=== PATIENT | male | born 1980 | race Caucasian/White ===

== ENCOUNTER 2016-09-21 12:15 | Emergency (ER) | payer BC ==
[~2016-09-21] VITALS: Ht 172.7 cm; Wt 70.3 kg
--- NOTE | 2016-09-21 12:22 | NUR ---
[id number], came to er c/o ANXIETY, LEFT ARM NUMBNESSM L ELBOW SWELLING, PALPITATIONS, HEADACHE. skin is warm and dry. resp is even and unlabored with nad noted. NITO Laurent at BS for eval.
--- NOTE | 2016-09-21 12:23 | NUR ---
Patient placed on monitor and will continuously monitor the patient.
[2016-09-21] MEDS ORDERED: IBUPROFEN 400 MG TABLET ONE (12:49)
[2016-09-21] MEDS ORDERED: IBUPROFEN 400 MG TABLET PO ONE (13:00)
[2016-09-21 13:14] VITALS: BP 117/71
== END 2016-09-21 13:15 | disposition home or self-care (01) ==
LOC: ER 12:19
DX: M94.0 Chondrocostal junction syndrome [Tietze] (principal); F41.9 Anxiety disorder, unspecified; M79.89 Other specified soft tissue disorders; R00.2 Palpitations; R51 Headache
CPT/HCPCS: A4606; Z7610

== ENCOUNTER 2017-11-27 18:07 | Emergency (ER) | payer BC ==
[~2017-11-27] VITALS: Ht 172.7 cm; Wt 68.0 kg
[2017-11-27 18:07] VITALS: BP 113/56
== END 2017-11-27 20:54 | disposition home or self-care (01) ==
LOC: ER 18:08
DX: S00.12XA Contusion of left eyelid and periocular area, initial encounter (principal); S00.31XA Abrasion of nose, initial encounter; Z90.89 Acquired absence of other organs; W22.8XXA Striking against or struck by other objects, initial encounter; Y93.89 Activity, other specified; Y92.89 Other specified places as the place of occurrence of the external cause; Y99.8 Other external cause status
CPT/HCPCS: 99281; A4606; Z7610; Z7502